=== PATIENT | female | born 1930 | race Caucasian/White ===

== ENCOUNTER → 2016-07-13 | Outpatient (CLI) | payer BC ==
[~2016-07-13] VITALS: Ht 158.8 cm; Wt 47.1 kg
[~2016-07-13] MED LIST: ATV5X PO; CHOL1TAB46 PO; FSM70 PO; MIRT1TAB27 PO
[2016-07-13 15:45] VITALS: BP 159/77; PULSE 80; Ht 158.8 cm; Wt 47.1 kg
== END | disposition home or self-care (01) ==
LOC: C.NEUR 13:24
PROVIDERS: ATTEND Internal Medicine Pulmonary Disease
DX: G47.30 Sleep apnea, unspecified (principal)

== ENCOUNTER → 2017-01-23 | Outpatient (CLI) | payer BC ==
--- NOTE | 2017-01-23 12:48 | DIAGNOSTIC IMAGING REPORT ---
BILATERAL LOWER EXTREMITY VENOUS DOPPLER HISTORY: R60.0 Edema [id number] COMPARISON STUDY: None. FINDINGS: There is normal compressibility, flow, and augmentation within the bilateral lower extremity deep venous systems. IMPRESSION: No DVT within the right or left lower extremity. Electronically signed by: Dany Wilkins M.D. 01/23/2017 12:47 PM Dictated Date/Time: 01/23/2017 12:47 PM
== END | disposition home or self-care (01) ==
LOC: C.ULTRBC 12:09
PROVIDERS: ATTEND Physician Assistant Medical
DX: R60.0 Localized edema (principal)

== ENCOUNTER → 2017-01-28 | Outpatient (CLI) | payer BC ==
[2017-01-28 17:15] LABS: BASO % 0.4 %; BASO ABS # 0.02 K/uL (0-0.2); COMPLETE YES; HEMATOCRIT 43.5 % (37-47); LYMPH % 24.4 %; LYMPH ABS # 1.19 K/uL (1.2-3.4); MEAN CELL VOLUME 88.2 fL (80-100); MEAN CORPUSCULAR HGB CONC 32.9 g/dl (32-36); MEAN PLATELET VOLUME 11.9 fL (7.4-10.4); MONO % 9.9 %; NEUT % 64.3 %; PLATELET COUNT 177 K/uL (130-400); RED BLOOD COUNT 4.93 M/uL (4.2-5.4); WHITE BLOOD COUNT 4.87 K/uL (4.8-10.8)
[2017-01-28 17:24] LABS: BLOOD UREA NITROGEN 22 mg/dl (7-18); BUN/CREATININE RATIO 25.8 (10-20); CALCIUM 8.8 mg/dl (8.5-10.1); CARBON DIOXIDE 25 mmol/L (21-32); CHLORIDE 107 mmol/L (98-107); CREATININE 0.86 mg/dl (0.60-1.20); GLUCOSE 126 mg/dl (70-99); SODIUM 140 mmol/L (136-145)
[2017-01-28 17:35] LABS: THYROID STIMULATING HORMONE 0.624 uIu/ml (0.300-4.500)
== END | disposition home or self-care (01) ==
LOC: C.LABBC 13:18
PROVIDERS: ATTEND Physician Assistant Medical
DX: R60.0 Localized edema (principal); M81.0 Age-related osteoporosis without current pathological fracture

== ENCOUNTER → 2017-08-05 | Outpatient (CLI) | payer BC | END | disposition home or self-care (01) | LOC: C.MAMM 10:47 | PROVIDERS: ATTEND Internal Medicine Geriatric Medicine | DX: M81.0 Age-related osteoporosis without current pathological fracture (principal) ==

== ENCOUNTER 2020-01-04 15:43 | Observation (INO) ==
[2020-01-04] MEDS ORDERED: cefTRIAXone SODIUM 1,000 MG/50 ML BAG IV STA (16:50)
--- NOTE | 2020-01-04 17:33 | XRay Report ---
XR tibia fibula RT 2V HISTORY: 89 years-old Female ulcer, cellulitis, eval for osseos involvement patient presents with pa in and swelling of the right lower leg with reported cellulitis COMPARISON: Right tibia and fibula radiographs 08/21/2018 TECHNIQUE: 2 views of the right tibia and fibula FINDINGS: Demineralized appearance of the bones. Osteoarthritis of the knee and ankle. No acute fracture, dislo cation or osseous erosion to suggest osteomyelitis. Mild diffuse soft tissue prominence. Arterial zunilda cifications. IMPRESSION: Soft tissue swelling without acute fracture or osseous erosion. ACT 112: Negative or not required by law. The above report was generated using voice recognition software. It may contain grammatical, syntax o r spelling errors. Electronically signed by: Isac Baig M.D. 01/04/2020 5:32 PM
[2020-01-04 17:34] LABS: Basophils # (auto) 0.01 K/uL (0-0.2); Basophils % (auto) 0.1 %; Eosinophils # (auto) 0.01 K/uL (0-0.5); Eosinophils % (auto) 0.1 %; Hematocrit (blood only) 42.1 % (37-47); Hemoglobin 13.9 g/dL (12.0-16.0); Immature Granulocytes # (auto) 0.01 K/uL (0.00-0.02); Immature Granulocytes % (auto) 0.1 %; Lymphocytes # (auto) 1.04 K/uL (1.2-3.4); Lymphocytes % (auto) 14.2 %; Mean Corpuscular Hemoglobin 28.5 pg (25-34); Mean Corpuscular Volume 86.4 fL (80-100); Mean Platelet Volume 11.4 fL (7.4-10.4); Monocytes # (auto) 0.66 K/uL (0.11-0.59); Neutrophils # (auto) 5.59 K/uL (1.4-6.5); Neutrophils % (auto) 76.5 %; Platelet Count 179 K/uL (130-400); RDW Coefficient of Variation 15.2 % (11.5-14.5); RDW Standard Deviation 48.9 fL (36.4-46.3); Red Blood Count 4.87 M/uL (4.2-5.4); White Blood Count 7.32 K/uL (4.8-10.8)
[2020-01-04 17:46] LABS: INR 1.1 (0.9-1.1); Partial Thromboplastin Ratio 1.3; Partial Thromboplastin Time 35.6 Seconds (21.0-31.0); Prothrombin Time 11.6 Seconds (9.0-12.0)
[2020-01-04 17:52] LABS: Albumin Level 3.7 gm/dl (3.4-5.0); BUN Creatinine Ratio 25.4 (10-20); Creatinine Clr Calc Pharmacy 31.7 ml/min; Magnesium 2.2 mg/dl (1.8-2.4); Potassium 3.7 mmol/L (3.5-5.1)
[2020-01-04] MEDS ORDERED: VANCOMYCIN CONSULT ACTIVE PRN (17:54)
[2020-01-04] MEDS ORDERED: VANCOMYCIN HCL 1,000 MG in SODIUM CHLORIDE 0.9% 500 ML IV ONE (17:54)
[2020-01-04 17:55] LABS: Bilirubin,Total 0.9 mg/dl (0.2-1); C Reactive Protein 0.3 mg/dl (0-0.29); Globulin 3.7 gm/dl (2.5-4.0); Total Protein 7.4 gm/dl (6.4-8.2)
[2020-01-04] MEDS: SODIUM CHLORIDE 0.9% 1000ML 1,000 ML IV SCH (18:35)
--- NOTE | 2020-01-04 18:52 | Emergency Department Note ---
Impression & Plan Traumatic open wound of right lower leg with delayed healing, Chronic venous stasis, Osteoporosis ED Provider Note NAME: BLANCO BUI AGE: 89 SEX: F ARRIVES VIA: Walk-In INFORMANT: Patient, ED PROVIDER(S): Gary Jeronimo MD CHIEF COMPLAINT: Nonhealing leg ulcer/cellulitis PLAN: Disposition: Admit MEDICAL DECISION MAKING: The patient is a pleasant 89-year-old woman who presents emergency department referred by the wound clinic for concern for nonhealing right lower leg traumatic ulcer after being seen last week and started on doxycycline but seen today concern for lack of response and so referred to emergency department for admission/IV antibiotics. The patient denies any fevers, chills, cough, congestion, nausea, vomiting, diarrhea, urinary symptoms. On arrival patient is no acute distress, afebrile stable vital signs. On exam the patient has a 1 cm ulcer of the mid pretibial region with surrounding warmth and erythema with mild tenderness. There is no crepitus. WBC, H/H and platelets within normal limits. Chemistry without acidosis. Lactate 1.2, within normal limits. CRP marginally elevated at 0.3, ESR within normal limits. Plain film of the right lower leg negative for osseous involvement. Given failed outpatient management of the patient's wound reasonable to meet the patient for further management including IV antibiotics. Patient was provided with initial treatment with ceftriaxone and vancomycin. Patient and her friend at the bedside are agreeable with plan for admission. Case was discussed with Dr. Baeza, [facility] hospitalist, who will evaluate the patient for admission. Triage Nursing notes reviewed and agree them. Prior medical records reviewed Vital Signs: reviewed and remarkable for no significant abnormalities Differential diagnosis: Cellulitis, abscess, MRSA infection, DVT, necrotizing fasciitis, dermatitis, dr ug eruption, allergic reaction, as well as other pathologies. ER treatment provided: See below. Diagnostics interpreted by me: Cardiac Monitoring: An order for continuous cardiac monitoring was placed and demonstrated NSR, 90 bpm, no ectopy. Laboratory studies: See below Imaging studies: XR tibia fibula RT 2V HISTORY: 89 years-old Female ulcer, cellulitis, eval for osseos involvement patient presents with pain and swelling of the right lower leg with reported zhang lulitis COMPARISON: Right tibia and fibula radiographs 08/21/2018 TECHNIQUE: 2 views of the right tibia and fibula FINDINGS: Demineralized appearance of the bones. Osteoarthritis of the knee and ankle. No acute fracture, dislocation or osseous erosion to suggest osteomyelitis. Mild diffuse soft tissue prominence. Arterial calcifications. IMPRESSION: Soft tissue swelling without acute fracture or osseous erosion. Consultation(s): Case was discussed with Dr. Baeza, [facility] hospitalist, who will evaluate the patient for admission. HPI: The patient is a pleasant 89-year-old woman who presents emergency department referred by the wound clinic for concern for nonhealing right lower leg traumatic ulcer after being seen last week and started on doxycycline but seen today concern for lack of response and so referred to emergency department for admission/IV antibiotics. The patient denies any fevers, chills, cough, congestion, nausea, vomiting, diarrhea, urinary symptoms. ROS: See above HPI for pertinent positives & negatives. A total of 10 systems reviewed and were otherwise negative. PAST MEDICAL HISTORY:See Below PAST SURGICAL HISTORY:See Below FAMILY HISTORY:See Below SOCIAL HISTORY:See Below HOME MEDICATIONS:See Below ALLERGIES:See Below VITALS:See Below PHYSICAL EXAMINATION: GENERAL: Awake, alert, well-appearing, in no distress HENT: Normocephalic, atraumatic. Oropharynx with dry mucous membranes and otherwise unremarkable. EYES: Normal conjunctiva. Sclera non-icteric. NECK: Supple. No nuchal rigidity. FROM. No JVD. RESPIRATORY: Clear to auscultation. CARDIAC: Regular rate, normal rhythm. Extremities warm and well perfused. Pulses equal. ABDOMEN: Soft, non-distended. No tenderness to palpation. No rebound or guarding. No masses. RECTAL: Deferred. MUSCULOSKELETAL: Chest examination reveals no tenderness. The back is symmetrical on inspection without obvious abnormality. There is no CVA tenderness to palpation. No joint edema. LOWER EXTREMITIES: Calves are equal size bilaterally and non-tender. Right lower leg with 1 cm ulcer of the mid pretibial region with surrounding warmth and erythema with mild tenderness. There is no crepitus. NEURO: Normal sensorium. No sensory or motor deficits noted. SKIN: Warm and dry. No jaundice noted. Gary Jeronimo MD Past Med/Surg History Medical History Back pain (Acute) Chronic venous stasis (Chronic) Elevated blood pressure reading Osteoporosis (Chronic) T12 compression fracture (Acute) Surgical History History of hysterectomy S/P total abdominal hysterectomy Family History Daughter Breast cancer Denies family history of Ovarian cancer Prostate cancer Myocardial infarction Colorectal cancer Stroke Social History Smoking Status: Former smoker Hx Alcohol Use: Yes Alcohol type: wine Alcohol Intake Frequency: Monthly or Less Hx Substance Use: No Preferred Language: Iranian Communication Ability: Effective Mac Developer Required: No Beliefs That Will Affect Care: None Current Living Situation: Alone Other Information That Helps Us Care for You: No Feels Safe at Home: Yes Safety Concerns: Feels Safe At This Time Allergies Allergies Allergy/AdvReac Type Severity Reaction Status Date / Time codeine Allergy Unknown Unknown Verified 01/04/20 17:32 Sulfa (Sulfonamide Allergy Unknown Unknown Verified 01/04/20 17:32 Antibiotics) Home Meds Previous Rx's Medication Instructions Recorded doxycycline hyclate 100 mg capsule 100 mg PO BID #20 cap 12/22/19 Results & Data (ED) Vital Signs Vital Signs - 24 hr 01/04/20 16:01 01/04/20 17:00 01/04/20 17:30 Temperature 36.8 C Temperature Source Oral Pulse Rate 91 H Pulse Rate from SpO2 Sensor Pulse Rhythm Regular Pulse Strength Normal Respiratory Rate 20 16 17 Respiratory Effort / Characteristics Non-Labored Spontaneous Non-Labored Spontaneous Non-Labored Spontaneous Respiratory Depth Normal Respiratory Pattern Regular Blood Pressure 141/81 H Blood Pressure Mean 101 Blood Pressure Position Sitting Pulse Oximetry 97 98 97 Oxygen Delivery Method Room Air Room Air Room Air Sepsis Recent Fever Within 48 Hours No Sepsis New/Unexplained Change in Mental Status N/A Sepsis Action Taken by Nursing No Action Required 01/04/20 17:35 01/04/20 17:50 01/04/20 18:00 Temperature Temperature Source Pulse Rate 91 H 83 84 Pulse Rate from SpO2 Sensor 91 H 84 85 Pulse Rhythm Pulse Strength Respiratory Rate 17 23 22 Respiratory Effort / Characteristics Non-Labored Spontaneous Respiratory Depth Respiratory Pattern Blood Pressure 146/82 H 151/77 H 153/75 H Blood Pressure Mean 98 104 109 Blood Pressure Position Pulse Oximetry 97 96 97 Oxygen Delivery Method Room Air Sepsis Recent Fever Within 48 Hours Sepsis New/Unexplained Change in Mental Status Sepsis Action Taken by Nursing 01/04/20 18:30 01/04/20 18:31 01/04/20 19:00 Temperature Temperature Source Pulse Rate 90 93 H Pulse Rate from SpO2 Sensor 91 H 93 H Pulse Rhythm Pulse Strength Respiratory Rate 16 19 15 Respiratory Effort / Characteristics Non-Labored Spontaneous Non-Labored Spontaneous Respiratory Depth Respiratory Pattern Blood Pressure 173/85 H 168/104 H Blood Pressure Mean 140 137 Blood Pressure Position Pulse Oximetry 97 97 98 Oxygen Delivery Method Room Air Room Air Sepsis Recent Fever Within 48 Hours Sepsis New/Unexplained Change in Mental Status Sepsis Action Taken by Nursing Laboratory Data Attestation: I reviewed the patient's lab results. Result diagrams: 01/04/20 17:11 01/04/20 17:11 Lab Results 01/04/20 01/04/20 01/04/20 Range/Units 17:11 17:11 17:11 WBC 7.32 (4.8-10.8) K/uL RBC 4.87 (4.2-5.4) M/uL Hgb 13.9 (12.0-16.0) g/dL Hct 42.1 (37-47) % MCV 86.4 (80-100) fL MCH 28.5 (25-34) pg MCHC 33.0 (32-36) g/dL RDW Std Deviation 48.9 H (36.4-46.3) fL RDW Coeff of Buck 15.2 H (11.5-14.5) % Plt Count 179 (130-400) K/uL MPV 11.4 H (7.4-10.4) fL Immature Gran % (Auto) 0.1 % Neut % (Auto) 76.5 % Lymph % (Auto) 14.2 % [place] % (Auto) 9.0 % Eos % (Auto) 0.1 % Baso % (Auto) 0.1 % Neut # (Auto) 5.59 (1.4-6.5) K/uL Lymph # (Auto) 1.04 L (1.2-3.4) K/uL [place] # (Auto) 0.66 H (0.11-0.59) K/uL Eos # (Auto) 0.01 (0-0.5) K/uL Baso # (Auto) 0.01 (0-0.2) K/uL Immature Gran # (Auto) 0.01 (0.00-0.02) K/uL ESR 16 (0-21) mm/hr PT 11.6 (9.0-12.0) Seconds INR 1.1 (0.9-1.1) APTT 35.6 H (21.0-31.0) Seconds PTT Ratio 1.3 Sodium (136-145) mmol/L Potassium (3.5-5.1) mmol/L Chloride (98-107) mmol/L Carbon Dioxide (21-32) mmol/L Anion Gap (3-11) BUN (7-18) mg/dl Creatinine (0.6-1.2) mg/dl Est Cr Clr Drug Dosing ml/min Est GFR ( Amer) Est GFR (Non-Af Amer) BUN/Creatinine Ratio (10-20) Glucose (70-99) mg/dl Lactate (0.4-2.0) mmol/L Calcium (8.5-10.1) mg/dl Magnesium (1.8-2.4) mg/dl Total Bilirubin (0.2-1) mg/dl AST (15-37) U/L ALT (12-78) U/L Alkaline Phosphatase (45-117) U/L C-Reactive Protein (0-0.29) mg/dl Total Protein (6.4-8.2) gm/dl Albumin (3.4-5.0) gm/dl Globulin (2.5-4.0) gm/dl Albumin/Globulin Ratio (0.9-2) 01/04/20 01/04/20 Range/Units 17:11 17:11 WBC (4.8-10.8) K/uL RBC (4.2-5.4) M/uL Hgb (12.0-16.0) g/dL Hct (37-47) % MCV (80-100) fL MCH (25-34) pg MCHC (32-36) g/dL RDW Std Deviation (36.4-46.3) fL RDW Coeff of Buck (11.5-14.5) % Plt Count (130-400) K/uL MPV (7.4-10.4) fL Immature Gran % (Auto) % Neut % (Auto) % Lymph % (Auto) % [place] % (Auto) % Eos % (Auto) % Baso % (Auto) % Neut # (Auto) (1.4-6.5) K/uL Lymph # (Auto) (1.2-3.4) K/uL [place] # (Auto) (0.11-0.59) K/uL Eos # (Auto) (0-0.5) K/uL Baso # (Auto) (0-0.2) K/uL Immature Gran # (Auto) (0.00-0.02) K/uL ESR (0-21) mm/hr PT (9.0-12.0) Seconds INR (0.9-1.1) APTT (21.0-31.0) Seconds PTT Ratio Sodium 142 (136-145) mmol/L Potassium 3.7 (3.5-5.1) mmol/L Chloride 108 H (98-107) mmol/L Carbon Dioxide 27 (21-32) mmol/L Anion Gap 7.0 (3-11) BUN 21 H (7-18) mg/dl Creatinine 0.83 (0.6-1.2) mg/dl Est Cr Clr Drug Dosing 31.7 ml/min Est GFR ( Amer) 73.0 Est GFR (Non-Af Amer) 63.0 BUN/Creatinine Ratio 25.4 H (10-20) Glucose 100 H (70-99) mg/dl Lactate 1.2 (0.4-2.0) mmol/L Calcium 9.0 (8.5-10.1) mg/dl Magnesium 2.2 (1.8-2.4) mg/dl Total Bilirubin 0.9 (0.2-1) mg/dl AST 18 (15-37) U/L ALT 16 (12-78) U/L Alkaline Phosphatase 89 (45-117) U/L C-Reactive Protein 0.30 H (0-0.29) mg/dl Total Protein 7.4 (6.4-8.2) gm/dl Albumin 3.7 (3.4-5.0) gm/dl Globulin 3.7 (2.5-4.0) gm/dl Albumin/Globulin Ratio 1.0 (0.9-2) Administered Medications Sodium Chloride (Nss 1000ml) 1,000 mls @ 125 mls/hr IV .Q8H KIM Stop: 02/03/20 17:59 Last Admin: 01/04/20 18:35 Dose: 125 mls/hr Documented by: [id number] Discontinued Medications Ceftriaxone Sodium (Rocephin) 1,000 mg in 50 mls @ 100 mls/hr IV NOW STA Stop: 01/04/20 17:19 Last Infusion: 01/04/20 18:18 Dose: 0 mls/hr Documented by: [id number] Admin: 01/04/20 17:48 Dose: 100 mls/hr Documented by: [id number] Vancomycin HCl 1,000 mg/ (Sodium Chloride) 520 mls @ 200 mls/hr IV NOW ONE Stop: 01/04/20 20:29 Last Infusion: 01/04/20 22:06 Dose: 0 mls/hr Documented by: [id number] Admin: 01/04/20 18:31 Dose: 200 mls/hr Documented by: [id number] Blood Pressure Blood Pressure Findings: Elevated blood pressure Blood Pressure Disposition: further management by hospitalist Discharge Plan Visit Data *Final* Discharge Date/Time: 01/04/20 19:41 Chief Complaint: Infection, Wound Stated Complaint: WOUND, INFECTION ED Provider: Gary Jeronimo Discharge Problem: Traumatic open wound of right lower leg with delayed healing, Chronic venous stasis, Osteoporosis Patient Disposition: Admitted As Inpatient Discharge Instructions Interventions: ED Discharge Assessment Last Done: 01/04/20 19:41
--- NOTE | 2020-01-04 18:58 | History & Physical Report ---
Date of Service January 04, 2020 Assessment & Plan (1) Cellulitis: Already appears improved from prior descriptions Continue vanc + ceftriaxone Follow up blood cultures (2) Traumatic open wound of right lower leg with delayed healing: Wound care consult Already debrided today at wound care clinic (3) Tachycardia: Suspect anxiety +/- dehydration related Continue IV fluids overnight Irregularity is her PVCs and PACs which we will monitor overnight for any other rhythm abnormalities on telemetry (4) Elevated blood pressure reading: On no medication for this as outpatient. Monitor for now, no need to start anything acutely. (5) Osteoporosis: On no medication for this. Ca WNL (6) Chronic venous stasis: Consider repeat scans as per wound care note although I do not see an acute reason to do this as inaptient. (7) DVT prophylaxis: No SCDs due to skin integrity Hold off chemical anticoagulation at present given no history of VTE, no cancer and likely short duration of stay. History of Present Illness Chief Complaint: Ulcer, cellulitis, tachycardia Primary Care Provider: Jair Cristobal DO Elisa Gamboa is an 89 year old female who presents to the ER on the advice of wound care clinic due to ongoing traumatic wound on right lower bishop. 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 She was seen by her PCP on December 21 and started on doxycycline due to concern for surrounding cellulitis and set up with a wound care appointment today. At her wound care appointment the aound was debrideded however due to continued cellulitis which did not appear to respond to doxycycline and tachycardia with irregular rhythm in the office she was advised to go to the ER for further workup. Her irregular heart rate was also found during her PCP appointment in December and EKG at that time showed sinus tachycardia with occasional PACs and one PVC. In the ER she was started on vancomycin and ceftriaxone. WBC/ESR WNL and CRP minimally elevated. She was referred to the medicine team for possible admission due to failure of outpatient antibiotics. Allergies Allergy/AdvReac Type Severity Reaction Status Date / Time codeine Allergy Unknown Unknown Verified 01/04/20 17:32 Sulfa (Sulfonamide Allergy Unknown Unknown Verified 01/04/20 17:32 Antibiotics) Home Medications Home Medications Medication Instructions Recorded Confirmed Type doxycycline hyclate 100 mg capsule 100 mg PO BID #20 cap 12/22/19 01/04/20 Rx Past Med/Surg History Medical History Back pain (Acute) Chronic venous stasis (Chronic) Elevated blood pressure reading Osteoporosis (Chronic) T12 compression fracture (Acute) Surgical History History of hysterectomy S/P total abdominal hysterectomy Family History Daughter Breast cancer Denies family history of Ovarian cancer Prostate cancer Myocardial infarction Colorectal cancer Stroke Social History Smoking Status: Former smoker Hx Alcohol Use: Yes Alcohol type: wine Alcohol Intake Frequency: Monthly or Less Hx Substance Use: No Preferred Language: Telugu Communication Ability: Effective Home Economist Consumer Service Required: No Beliefs That Will Affect Care: None Current Living Situation: Alone Other Information That Helps Us Care for You: No Feels Safe at Home: Yes Safety Concerns: Feels Safe At This Time Review of Systems Review of Systems: All systems reviewed & are unremarkable except as noted in HPI & below Physical Exam 2 Constitutional: well developed and + frail appearing; no acute distress and not ill appearing Eyes: + anicteric sclerae; normal pupil size ENMT: external ear and nose normal, oropharynx normal Neck: trachea midline, no thyromegaly Respiratory: normal respiratory effort, lungs clear to auscultation Cardiovascular: RRR, no murmur, no edema Gastrointestinal (Abdomen): normal bowel sounds, soft, nontender, no hepatosplenomegaly Musculoskeletal: no cyanosis or clubbing, extremities motor strength 5/5 Skin: no rashes, warm and dry Neurologic: moves all extremities and awake; not confused Psychiatric: Orientation: alert, oriented to person and oriented to place; + not oriented to time (wrong date, month, year) Eye Contact: good eye contact Lymphatic: no cervical or axillary lymphadenopathy Results & Data Results & Data ([facility]) Vital Signs (Past 12 Hours) Vital Signs Temp Pulse Resp BP Pulse Ox 01/04/20 18:31 90 19 173/85 H 97 01/04/20 18:00 84 22 153/75 H 97 01/04/20 17:50 83 23 151/77 H 96 01/04/20 17:35 91 H 17 146/82 H 97 01/04/20 17:00 16 98 01/04/20 16:01 36.8 C 91 H 20 141/81 H 97 Diagnostic Findings XR tibia fibula RT 2V IMPRESSION: Soft tissue swelling without acute fracture or osseous erosion. Code Status & VTE Plan Code Status Full as per patient wishes - she did not wish me to discuss this with her daughter and appears to have capacity to make this decision VTE Prophylaxis Plan VTE Prophylaxis will be ordered: Yes PG Care Time/CCT Total # of Minutes Spent Total Time Spent with Patient: Total time spent is greater than 50% in coordination of care (as documented) at patient's floor/unit and/or counseling patient: Coding Level of Care Code 31557 OBS Care - Level 2 Diagnoses Cellulitis L03.90 Traumatic open wound of right lower leg with delayed healing S81.801D Tachycardia R00.0 Elevated blood pressure reading R03.0 Osteoporosis M81.0 Chronic venous stasis I87.8 DVT prophylaxis Z29.9
[2020-01-04] MEDS ORDERED: diphenhydrAMINE Capsule 25 MG CAP PO PRN (22:18)
[2020-01-04] MEDS ORDERED: ONDANSETRON INJ 2 MG/ML 2 ML VIAL IV PRN (22:43)
[2020-01-04] MEDS ORDERED: ALUMINUM/MAGNESIUM SUSP 30 ML UDC PO PRN (22:43)
[2020-01-04] MEDS ORDERED: MAGNESIUM HYDROXIDE SUSP 30 ML UDC PO PRN (22:43)
[2020-01-04] MEDS ORDERED: POLYETHYLENE (MIRALAX) 17 GM PACK PO PRN (22:43)
[2020-01-05] MEDS: SODIUM CHLORIDE 0.9% 1000ML 1,000 ML IV SCH ×3 (01:50→17:06)
[2020-01-05 07:03] LABS: Basophils # (auto) 0.01 K/uL (0-0.2); Basophils % (auto) 0.2 %; Eosinophils # (auto) 0.13 K/uL (0-0.5); Eosinophils % (auto) 2.6 %; Hematocrit (blood only) 37.6 % (37-47); Hemoglobin 12.4 g/dL (12.0-16.0); Immature Granulocytes # (auto) 0.01 K/uL (0.00-0.02); Immature Granulocytes % (auto) 0.2 %; Lymphocytes # (auto) 1.22 K/uL (1.2-3.4); Lymphocytes % (auto) 24.6 %; Mean Corpuscular Hemoglobin 28.5 pg (25-34); Mean Corpuscular Volume 86.4 fL (80-100); Mean Platelet Volume 11.6 fL (7.4-10.4); Monocytes # (auto) 0.44 K/uL (0.11-0.59); Monocytes % (auto) 8.9 %; Neutrophils # (auto) 3.14 K/uL (1.4-6.5); Neutrophils % (auto) 63.5 %; Platelet Count 152 K/uL (130-400); RDW Standard Deviation 48.1 fL (36.4-46.3); Red Blood Count 4.35 M/uL (4.2-5.4); White Blood Count 4.95 K/uL (4.8-10.8)
[2020-01-05 07:43] LABS: BUN Creatinine Ratio 18.5 (10-20); Calcium 7.7 mg/dl (8.5-10.1); Creatinine Clr Calc Pharmacy 41.6 ml/min; Est GFR (African American) 95.9; Est GFR (Non-African American) 82.8; Potassium 3.5 mmol/L (3.5-5.1)
--- NOTE | 2020-01-05 10:41 | Pharmacy Report ---
Pharmacy Abx Initial Consult - Date of Service January 05, 2020 - Pharmacy Dosing Scope Date of Consult: 01/04/2020 Consultation requested by: Dr. Baeza Pharmacy is consulted to initiate Vancomycin IV dosing therapy, order appropriate labs and adjust drug dose/frequency. - Subjective The patient is a 89 year old F admitted on 01/04/20 19:09. - Objective Height: 4 ft 9 in Weight: 39.7 kg Vital Signs (Past 12hrs): Vital Signs Temp Pulse Pulse Resp BP Pulse Ox 01/05/20 08:00 68 01/05/20 07:02 36.9 C 80 18 149/72 H 94 01/05/20 04:00 36.8 C 79 20 164/70 H 96 01/04/20 23:27 36.8 C 79 20 161/77 H 97 01/04/20 23:19 70 Lab Results (24hrs): Laboratory Tests (24 Hours) 01/05/20 01/05/20 01/04/20 06:46 06:46 17:11 WBC 4.95 Neut # (Auto) 3.14 ESR Creatinine 0.57 L 0.83 Est Cr Clr Drug Dosing 41.6 31.7 C-Reactive Protein 0.30 H 01/04/20 01/04/20 17:11 17:11 WBC 7.32 Neut # (Auto) 5.59 ESR 16 Creatinine Est Cr Clr Drug Dosing C-Reactive Protein Micro Results: 01/04/20 17:45 Aerobic Blood Culture - Pending Blood Anaerobic Blood Culture - Pending 01/04/20 17:11 Aerobic Blood Culture - Pending Blood Anaerobic Blood Culture - Pending - Risk Factors for Resistance * Antimicrobial use within the last 90 days: * Doxycycline 100 mg PO BID - Assessment & Plan Assessment 89 year old F admitted secondary to nonhealing RLE traumatic ulcer * Patient has a h/o chronic venous stasis and has been following with wound clinic for open wound on RLE. Sent from wound clinic for IV abx following failure of outpatient treatment with PO doxycycline. * According to ED note: "1 cm ulcer of the mid pretibial region with surround warmth and erythema with mild tenderness". * Upon admission: she is afebrile, no leukocytosis, renal fxn appears to be at baseline, ESR not elevated, CRP mildly elevated, Lactic acid 1.2. * Blood and RLE cultures are pending. * RLE XR shows "soft tissue swelling" without evidence of osteomyelitis. Plan Vancomycin + Ceftriaxone for treatment of RLE cellulitis Vancomycin IV * Estimated PK Parameters: t1/2 ~ 18 hrs * Loading dose: 1000 mg (25 mg/kg) * Maintenance dose: 750 mg IV (19 mg/kg) every 18 hours * Goal trough level: ~ 15 mcg/mL * Trough level ordered for , Jan.06, at 1730 prior to the 4th maintenance dose to reflect steady state levels Ceftriaxone (Pharmacy not consulted) * 1 g IV every 24 hours - appropriate per indication and renal function Pharmacy will continue to follow and will adjust dose/frequency as necessary. Thank you.
[2020-01-05] MEDS: VANCOMYCIN HCL 750 MG in SODIUM CHLORIDE 0.9% 250 ML IV SCH (12:26)
[2020-01-05] MEDS ORDERED: VANCOMYCIN HCL 750 MG in SODIUM CHLORIDE 0.9% 250 ML IV SCH (16:00)
[2020-01-05] MEDS ORDERED: cefTRIAXone SODIUM 1,000 MG in DEXTROSE 5% 50 ML IV SCH (16:00)
[2020-01-05] MEDS: ACETAMINOPHEN 325 MG TAB PO PRN (17:49)
[2020-01-05] MEDS ORDERED: MELATONIN 3 MG TAB PO PRN (20:23)
[2020-01-05] MEDS: diphenhydrAMINE Capsule 25 MG CAP PO PRN (20:36)
--- NOTE | 2020-01-05 22:51 | Hospitalist Progress Note ---
Date of Service January 05, 2020 Assessment & Plan (1) Cellulitis: Already appears improved from prior descriptions Continue vanc + ceftriaxone Follow up blood cultures: have no been finalized as 01/04 appreciate wound care input. (2) Traumatic open wound of right lower leg with delayed healing: Wound care consult Already debrided today at wound care clinic (3) Tachycardia: Suspect anxiety +/- dehydration related Continue IV fluids overnight Irregularity is her PVCs and PACs which we will monitor overnight for any other rhythm abnormalities on telemetry (4) Elevated blood pressure reading: On no medication for this as outpatient. Monitor for now, no need to start anything acutely. May consider starting low dose amlodipine (2.5 mg PO HS) at discharge (5) Osteoporosis: On no medication for this. Ca WNL (6) Chronic venous stasis: Consider repeat scans as per wound care note although I do not see an acute reason to do this as inpatient. (7) DVT prophylaxis: starting heparin in AM, if not discharged. Admission and Anticipated Discharge Date Admission Date: January 04, 2020 Subjective 89 yo female reports feeling better. She has no new complaints at this time. Review of Systems Review of Systems: All systems reviewed & are unremarkable except as noted in HPI & below Physical Exam Physical Exam: Constitutional: well developed,no acute distress and not ill appearing Eyes: + anicteric sclerae; normal pupil size ENMT: external ear and nose normal, oropharynx normal Neck: trachea midline, no thyromegaly Respiratory: normal respiratory effort, lungs clear to auscultation Cardiovascular: RRR, no murmur, no edema Gastrointestinal (Abdomen): normal bowel sounds, soft, nontender, no hepatosplenomegaly Musculoskeletal: no cyanosis or clubbing, extremities motor strength 5/5 Skin: no rashes, warm and dry Neurologic: moves all extremities and awake; not confused Psychiatric: Orientation: alert, oriented to person and oriented to place; + not oriented to time (wrong date, month, year) Eye Contact: good eye contact Lymphatic: no cervical or axillary lymphadenopathy Results & Data Results & Data ([facility]) Vital Signs (Past 12 Hours) Vital Signs Temp Pulse Pulse Resp BP Pulse Ox 01/05/20 19:28 36.8 C 82 16 150/79 H 97 01/05/20 16:00 75 01/05/20 15:07 36.8 C 79 18 164/63 H 96 PG Care Time/CCT Total # of Minutes Spent Total Time Spent with Patient: Total time spent is greater than 50% in coordination of care (as documented) at patient's floor/unit and/or counseling patient: Coding Level of Care Code 14566 Subseq Hosp Care Lvl 3 Diagnoses Cellulitis L03.90 Traumatic open wound of right lower leg with delayed healing S81.801D Tachycardia R00.0 Elevated blood pressure reading R03.0 Osteoporosis M81.0 Chronic venous stasis I87.8 DVT prophylaxis Z29.9 Time Spent (min) 35
[2020-01-06] MEDS ORDERED: OLANZapine 10 MG/2.1 ML SDV IM STA (00:41)
[2020-01-06 03:18] LABS: Creatinine Clr Calc Pharmacy 23.7 ml/min; Est GFR (African American) 58.3; Est GFR (Non-African American) 50.3
[2020-01-06] MEDS: VANCOMYCIN HCL 750 MG in SODIUM CHLORIDE 0.9% 250 ML IV SCH (05:44)
[2020-01-06] MEDS: HEPARIN SOD 5,000 UNIT/0.5 ML VIAL SQ SCH ×2 (10:06→20:27)
[2020-01-06] MEDS: CEFEPIME 1,000 MG in SYRINGE 0 ML IV SCH ×2 (10:06→21:49)
[2020-01-06] MEDS ORDERED: OLANZapine 10 MG/2.1 ML SDV IM PRN (11:13)
--- NOTE | 2020-01-06 13:52 | Hospitalist Progress Note ---
Date of Service January 06, 2020 Assessment & Plan (1) Cellulitis: Right lower extremity from venous stasis ulceration. Pseudomonas isolated. Antibiotic switched to cefepime, day 1. Follow up blood cultures negative to date. Appreciate wound care input. (2) Traumatic open wound of right lower leg with delayed healing: Wound care consult. Debrided at wound care clinic 01/04. (3) Tachycardia: Resolved with IV fluids. Telemetry. (4) Elevated blood pressure reading: On no medication for this as outpatient. Monitor for now, no need to start anything acutely. May consider starting amlodipine (5) Osteoporosis: Currently on no medication for this. Ca WNL (6) Chronic venous stasis: Supportive care. (7) DVT prophylaxis: Heparin subcu (8) : Supportive care. Zyprexa IM as needed Present on Admission?: No Admission and Anticipated Discharge Date Admission Date: January 06, 2020 Subjective [place] psychosis last evening necessitated Zyprexa IM. Pseudomonas isolated from the right lower extremity wound. Antibiotics switched to cefepime. White blood cell count trending down. Creatinine 0.5 Review of Systems Review of Systems: Constitutional-no fever or chills ENT-no blurred vision, no double vision, no epistaxis, no sore throat Respiratory-no cough, no wheezing, no shortness of breath Cardiac-no palpitations, no chest pain, no syncope GI-no nausea, vomiting, diarrhea, melena, hematochezia -no urinary retention, no urinary incontinence, no dysuria, no hematuria Musculoskeletal-no joint pain, no muscle tenderness Skin-no bruising, no rashes, no pruritus Neuro-no isolated weakness, no paresthesia, no weakness Psych-no depression, no anxiety Physical Exam Physical Exam: General-alert and oriented x3, no fevers, no chills HEENT-head atraumatic and normocephalic, TMs intact bilaterally, pupils equal and reactive to light, extraocular muscles intact Neck-no lymphadenopathy or thyromegaly, trachea midline Chest-clear to auscultation percussion. No rales wheezing or rhonchi Cardiac-regular rate and rhythm, normal S1 and S2, no murmurs Abdomen-normal bowel sounds, nontender, no hepatosplenomegaly Extremities-chronic bilateral lower extremity venous stasis changes. Ulceration right lower extremity is bandaged Neuro-cranial nerves II through XII intact, motor and sensory function within normal limits, strength symmetrical 5/5, no focal deficits Psych-normal affect, normal mood Results & Data Results & Data ([facility]) Vital Signs (Past 12 Hours) Vital Signs Temp Pulse Pulse Resp BP BP Pulse Ox 01/06/20 07:33 60 01/06/20 07:20 36.4 C L 66 18 162/77 H 95 01/06/20 04:00 36.6 C 70 18 146/71 H 98 Laboratory Results 01/05/20 06:46 01/06/20 02:38 PG Care Time/CCT Total # of Minutes Spent Total Time Spent with Patient: Total time spent is greater than 50% in coordination of care (as documented) at patient's floor/unit and/or counseling patient: Coding Level of Care Code 10011 Subseq Hosp Care Lvl 3 Diagnoses Cellulitis L03.90 Traumatic open wound of right lower leg with delayed healing S81.801D Tachycardia R00.0 Elevated blood pressure reading R03.0 Osteoporosis M81.0 Chronic venous stasis I87.8 DVT prophylaxis Z29.9 F05
[2020-01-07 07:30] LABS: Hematocrit (blood only) 39.6 % (37-47); Hemoglobin 13.3 g/dL (12.0-16.0); Mean Corpuscular Hemoglobin 28.9 pg (25-34); Mean Corpuscular Hgb Conc 33.6 g/dL (32-36); Mean Corpuscular Volume 86.1 fL (80-100); Platelet Count 171 K/uL (130-400); RDW Coefficient of Variation 15.2 % (11.5-14.5); RDW Standard Deviation 47.9 fL (36.4-46.3); White Blood Count 7.02 K/uL (4.8-10.8)
[2020-01-07 07:54] LABS: BUN Creatinine Ratio 15.1 (10-20); Calcium 8.4 mg/dl (8.5-10.1); Creatinine Clr Calc Pharmacy 27.9 ml/min; Est GFR (African American) 70.9; Est GFR (Non-African American) 61.2; Potassium 3.9 mmol/L (3.5-5.1)
[2020-01-07] MEDS: HEPARIN SOD 5,000 UNIT/0.5 ML VIAL SQ SCH ×2 (08:31→20:37)
[2020-01-07] MEDS: CEFEPIME 1,000 MG in SYRINGE 0 ML IV SCH ×2 (11:10→22:08)
--- NOTE | 2020-01-07 12:17 | Hospitalist Progress Note ---
Date of Service January 07, 2020 Assessment & Plan (1) Cellulitis: Right lower extremity from venous stasis ulceration. Pseudomonas isolated. Antibiotic switched to cefepime, day 2. Follow up blood cultures negative to date. Appreciate wound care input. (2) Traumatic open wound of right lower leg with delayed healing: Wound care consult. Debrided at wound care clinic 01/04. (3) Tachycardia: Resolved with IV fluids. Telemetry. (4) Elevated blood pressure reading: On no medication for this as outpatient. Monitor for now (5) Osteoporosis: Currently on no medication for this. Ca WNL (6) Chronic venous stasis: Supportive care. (7) DVT prophylaxis: Heparin subcu (8) ing: Supportive care. Zyprexa IM as needed Admission and Anticipated Discharge Date Admission Date: January 06, 2020 Subjective Alert and pleasantly confused with underlying dementia. She has an open stasis ulcer wound on the anterior aspect of the right lower leg with associated venous stasis changes. She is now on cefepime, day 2, for Pseudomonas that was isolated in the culture. Blood culture from January 03 remains negative to date. She is receiving Zyprexa IM as needed at nighttime for psychosis. Case management is working on placement. Review of Systems Review of Systems: Constitutional-no fever or chills ENT-no blurred vision, no double vision, no epistaxis, no sore throat Respiratory-no cough, no wheezing, no shortness of breath Cardiac-no palpitations, no chest pain, no syncope GI-no nausea, vomiting, diarrhea, melena, hematochezia -no urinary retention, no urinary incontinence, no dysuria, no hematuria Musculoskeletal-no joint pain, no muscle tenderness Skin-no bruising, no rashes, no pruritus. Open ulceration on the anterior lateral aspect of the right bishop with associated stasis dermatitis Neuro-no isolated weakness, no paresthesia, no weakness Psych-no depression, no anxiety Physical Exam Physical Exam: General-alert , pleasantly confused, no fevers, no chills HEENT-head atraumatic and normocephalic, TMs intact bilaterally, pupils equal and reactive to light, extraocular muscles intact Neck-no lymphadenopathy or thyromegaly, trachea midline Chest-clear to auscultation percussion. No rales wheezing or rhonchi Cardiac-regular rate and rhythm, normal S1 and S2, no murmurs Abdomen-normal bowel sounds, nontender, no hepatosplenomegaly Extremities-chronic bilateral lower extremity venous stasis changes. Ulceration right lower extremity is bandaged Neuro-generalized weakness due to advanced age. Underlying dementia. Psych-normal affect, normal mood Results & Data Results & Data ([facility]) Vital Signs (Past 12 Hours) Vital Signs Temp Pulse Pulse Resp BP Pulse Ox 01/07/20 11:03 117/71 01/07/20 10:54 36.9 C 77 18 95 01/07/20 07:14 36.7 C 62 20 149/76 H 98 01/07/20 07:12 54 L Laboratory Results 01/07/20 06:50 01/07/20 06:50 PG Care Time/CCT Total # of Minutes Spent Total Time Spent with Patient: Total time spent is greater than 50% in coordination of care (as documented) at patient's floor/unit and/or counseling patient: Coding Level of Care Code 72431 Subseq Hosp Care Lvl 3 Diagnoses Cellulitis L03.90 Traumatic open wound of right lower leg with delayed healing S81.801D Tachycardia R00.0 Elevated blood pressure reading R03.0 Osteoporosis M81.0 Chronic venous stasis I87.8 DVT prophylaxis Z29.9 F05
[2020-01-07] MEDS ORDERED: VANCOMYCIN TROUGH ONE (17:30)
[2020-01-08] MEDS: ACETAMINOPHEN 325 MG TAB PO PRN (04:56)
[2020-01-08 06:37] LABS: BUN Creatinine Ratio 25.3 (10-20); Calcium 8.8 mg/dl (8.5-10.1); Creatinine Clr Calc Pharmacy 24.2 ml/min; Est GFR (African American) 59.7; Est GFR (Non-African American) 51.5; Potassium 3.7 mmol/L (3.5-5.1)
[2020-01-08] MEDS: HEPARIN SOD 5,000 UNIT/0.5 ML VIAL SQ SCH ×2 (10:19→21:25)
[2020-01-08] MEDS: CEFEPIME 1,000 MG in SYRINGE 0 ML IV SCH ×2 (10:38→21:25)
--- NOTE | 2020-01-08 19:24 | Hospitalist Progress Note ---
Date of Service January 08, 2020 Assessment & Plan (1) Cellulitis: Right lower extremity from venous stasis ulceration. Pseudomonas isolated. Antibiotic switched to cefepime on 01/04. Follow up blood cultures negative to date. Appreciate wound care input. (2) Traumatic open wound of right lower leg with delayed healing: Wound care consult. Debrided at wound care clinic 01/04. (3) Tachycardia: Resolved with IV fluids. Telemetry. (4) Elevated blood pressure reading: On no medication for this as outpatient. Monitor for now (5) Osteoporosis: Currently on no medication for this. Ca WNL (6) Chronic venous stasis: Supportive care. (7) DVT prophylaxis: Heparin subcu (8) : Supportive care. Zyprexa IM as needed Admission and Anticipated Discharge Date Admission Date: January 06, 2020 Subjective Pt states she still has some pain to the R LE, but it is "to be expected" and improving, more of a soreness. Tolerating PO without issue. Pt denies fever, SOB, chest pain, abd pain, n/v/c/d, LE swelling. Review of Systems Review of Systems: Pertinent positives and negatives reviewed in HPI--all others negative Physical Exam Constitutional: WD/WN, vitals as above Eyes: normal visual pino by confrontation and + anicteric sclerae Neck: normal visual inspection and trachea midline Respiratory: normal respiratory effort, lungs clear to auscultation Cardiovascular: Rate/Rhythm: regular rate and regular rhythm Gastrointestinal (Abdomen): Inspection/Auscultation: abdomen not distended Percussion/Palpation: abdomen soft; abdomen nontender Musculoskeletal: Head/Neck/Chest: normocephalic and head atraumatic negative for edema, peripheral pulses intact Skin: no rashes, warm and dry bandage is clean and dry Neurologic: awake; not confused Speech / Cognition: normal speech Psychiatric: A+Ox3, euthymic affect Results & Data Results & Data ([facility]) Vital Signs (Past 12 Hours) Vital Signs Temp Pulse Pulse Resp BP Pulse Ox 01/08/20 16:00 71 01/08/20 15:43 36.9 C 76 17 121/69 94 01/08/20 11:27 36.9 C 87 16 118/79 97 01/08/20 10:20 64 PG Care Time/CCT Total # of Minutes Spent Total Time Spent with Patient: Total time spent is greater than 50% in coordina tion of care (as documented) at patient's floor/unit and/or counseling patient: Coding Level of Care Code 27384 Subseq Hosp Care Lvl 3 Diagnoses Cellulitis L03.90 Traumatic open wound of right lower leg with delayed healing S81.801D Tachycardia R00.0 Elevated blood pressure reading R03.0 Osteoporosis M81.0 Chronic venous stasis I87.8 DVT prophylaxis Z29.9 F05
[2020-01-09] MEDS: ACETAMINOPHEN 325 MG TAB PO PRN (04:17)
[2020-01-09] MEDS: HEPARIN SOD 5,000 UNIT/0.5 ML VIAL SQ SCH ×2 (07:52→20:40)
[2020-01-09] MEDS ORDERED: CEFDINIR 300 MG CAP PO SCH (09:15)
[2020-01-09 09:33] LABS: Hematocrit (blood only) 38.3 % (37-47); Hemoglobin 12.6 g/dL (12.0-16.0); Mean Corpuscular Hgb Conc 32.9 g/dL (32-36); Mean Platelet Volume 11.7 fL (7.4-10.4); Platelet Count 180 K/uL (130-400); RDW Coefficient of Variation 15.4 % (11.5-14.5); Red Blood Count 4.35 M/uL (4.2-5.4); White Blood Count 5.51 K/uL (4.8-10.8)
[2020-01-09 09:50] LABS: BUN Creatinine Ratio 23.1 (10-20); Calcium 8.4 mg/dl (8.5-10.1); Creatinine Clr Calc Pharmacy 29.6 ml/min; Est GFR (African American) 76.3; Est GFR (Non-African American) 65.8; Potassium 3.4 mmol/L (3.5-5.1)
[2020-01-09] MEDS ORDERED: CIPROFLOXACIN 500 MG TAB PO SCH (10:00)
--- NOTE | 2020-01-09 14:50 | Hospitalist Progress Note ---
Date of Service January 09, 2020 Assessment & Plan (1) Cellulitis: Right lower extremity from venous stasis ulceration. Pseudomonas isolated. Antibiotic switched to cefepime on 01/04 -> cipro PO on 01/08 Follow up blood cultures negative to date. Appreciate wound care input. (2) Traumatic open wound of right lower leg with delayed healing: Wound care consult. Debrided at wound care clinic 01/04. (3) Tachycardia: Resolved with IV fluids. Telemetry. (4) Elevated blood pressure reading: On no medication for this as outpatient. Current BPs are WNL (5) Osteoporosis: Currently on no medication for this. Ca WNL (6) Chronic venous stasis: Supportive care. (7) DVT prophylaxis: Heparin subcu (8) owning: Supportive care. Zyprexa IM as needed Family is currently working with CM on home with 24/12 care vs rehab due to pt's instability Rx on file for hospital bed due to frequent repositioning if pt to d/c to home D/W daughter Joseline on 01/08 Admission and Anticipated Discharge Date Admission Date: January 06, 2020 Subjective Pt states she has mild soreness to her R LE, but denies other pain. Tolerating PO without issue. Pt denies fever, SOB, chest pain, abd pain, n/v/c/d, LE swelling. 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 She states that her cellulitis is much better now. Spoke with daughter via phone. She does have concerns about pt going to a rehab facility given COVID and also pt's owning issues that are noted during her hospitalization. They are looking into 24hr care options for home. She would also like to discuss a home hospital bed as pt generally has a lot of back pain, which she does not seem to be having here. Review of Systems Review of Systems: Pertinent positives and negatives reviewed in HPI--all others negative Physical Exam Constitutional: WD/WN, vitals as above Eyes: normal visual pino by confrontation and + anicteric sclerae Neck: normal visual inspection and trachea midline Respiratory: normal respiratory effort, lungs clear to auscultation Cardiovascular: Rate/Rhythm: regular rate and regular rhythm Extremities: n o edema Gastrointestinal (Abdomen): Inspection/Auscultation: abdomen not distended Percussion/Palpation: abdomen soft; abdomen nontender Musculoskeletal: Head/Neck/Chest: normocephalic and head atraumatic Skin: no erythema (bandages clean and dry) Neurologic: awake; not confused Speech / Cognition: normal speech Psychiatric: A+Ox3, euthymic affect Results & Data Results & Data ([facility]) Vital Signs (Past 12 Hours) Vital Signs Temp Pulse Pulse Resp BP Pulse Ox 01/09/20 11:24 36.7 C 85 18 106/63 97 01/09/20 09:00 78 01/09/20 07:33 36.7 C 80 16 119/62 96 01/09/20 03:00 36.7 C 87 18 119/70 92 PG Care Time/CCT Total # of Minutes Spent Total Time Spent with Patient: Total time spent is greater than 50% in coordination of care (as documented) at patient's floor/unit and/or counseling patient: Coding Level of Care Code 98523 Subseq Hosp Care Lvl 3 Diagnoses Cellulitis L03.90 Traumatic open wound of right lower leg with delayed healing S81.801D Tachycardia R00.0 Elevated blood pressure reading R03.0 Osteoporosis M81.0 Chronic venous stasis I87.8 DVT prophylaxis Z29.9 F05
[2020-01-09] MEDS: diphenhydrAMINE Capsule 25 MG CAP PO PRN (22:01)
[2020-01-10] MEDS: CIPROFLOXACIN 500 MG TAB PO SCH ×2 (04:19→20:56)
[2020-01-10] MEDS: HEPARIN SOD 5,000 UNIT/0.5 ML VIAL SQ SCH ×2 (07:57→20:55)
--- NOTE | 2020-01-10 16:06 | Hospitalist Progress Note ---
Date of Service January 10, 2020 Assessment & Plan (1) Cellulitis: Right lower extremity from venous stasis ulceration. Pseudomonas isolated. Antibiotic switched to cefepime on 01/04 -> cipro PO on 01/08 Follow up blood cultures negative to date. Appreciate wound care input. (2) Traumatic open wound of right lower leg with delayed healing: Wound care consult. Debrided at wound care clinic 01/04. (3) Tachycardia: Resolved with IV fluids. Telemetry. (4) Elevated blood pressure reading: On no medication for this as outpatient. Current BPs are WNL (5) Osteoporosis: Currently on no medication for this. Ca WNL (6) Chronic venous stasis: Supportive care. (7) DVT prophylaxis: Heparin subcu (8) : Supportive care. Zyprexa IM as needed Family is currently working with CM on home with 24/12 care vs rehab due to pt's ambulatory instability Rx on file for hospital bed due to frequent repositioning if pt to d/c to home D/W daughter Joseline on 01/08 Admission and Anticipated Discharge Date Admission Date: January 06, 2020 Subjective Pt continues to have mild soreness to her R LE, but denies other pain. Tolerating PO without issue. Pt denies fever, SOB, chest pain, abd pain, n/v/c/d, LE swelling. Review of Systems Review of Systems: Pertinent positives and negatives reviewed in HPI--all others negative Physical Exam Constitutional: WD/WN, vitals as above Eyes: normal visual pino by confrontation and + anicteric sclerae Neck: normal visual inspection and trachea midline Respiratory: normal respiratory effort, lungs clear to auscultation Cardiovascular: Rate/Rhythm: regular rate and regular rhythm Extremities: no edema Gastrointestinal (Abdomen): Inspection/Auscultation: abdomen not distended Percussion/Palpation: abdomen soft; abdomen nontender Musculoskeletal: Head/Neck/Chest: normocephalic and head atraumatic Skin: no rashes, warm and dry no erythema (bandages clean and dry) Neurologic: awake; not confused Speech / Cognition: normal speech Psychiatric: A+Ox3, euthymic affect Results & Data Results & Data ([facility]) Vital Signs (Past 12 Hours) Vital Signs Temp Pulse Resp BP BP Pulse Ox 01/10/20 15:27 36.7 C 85 18 115/67 97 01/10/20 07:57 36.7 C 95 H 18 124/76 97 PG Care Time/CCT Total # of Minutes Spent Total Time Spent with Patient: Total time spent is greater than 50% in coordination of care (as documented) at patient's floor/unit and/or counseling patient: Coding Level of Care Code 46113 Subseq Hosp Care Lvl 2 Diagnoses Cellulitis L03.90 Traumatic open wound of right lower leg with delayed healing S81.801D Tachycardia R00.0 Elevated blood pressure reading R03.0 Osteoporosis M81.0 Chronic venous stasis I87.8 DVT prophylaxis Z29.9 F05
[2020-01-10] MEDS: diphenhydrAMINE Capsule 25 MG CAP PO PRN (20:59)
[2020-01-11 06:44] LABS: Creatinine Clr Calc Pharmacy 34.3 ml/min; Est GFR (African American) 90.1; Est GFR (Non-African American) 77.7
[2020-01-11] MEDS: HEPARIN SOD 5,000 UNIT/0.5 ML VIAL SQ SCH ×2 (08:37→20:12)
[2020-01-11] MEDS: CIPROFLOXACIN 500 MG TAB PO SCH ×2 (12:39→20:11)
--- NOTE | 2020-01-11 14:00 | XRay Report ---
XR chest 1V portable CLINICAL HISTORY: L posterior rib pain, recent fall trauma. Pain. COMPARISON STUDY: No previous studies for comparison. FINDINGS: The bones soft tissues and hemidiaphragms are normal. The cardiomediastinal silhouette is n ormal. The lungs are clear. The pulmonary vasculature is normal. Trace pleural fluid left base. No evidence for pneumothorax. IMPRESSION: Trace pleural effusion left lung base. No acute process. ACT 112: Negative or not required by law. The above report was generated using voice recognition software. It may contain grammatical, syntax or spelling errors. Electronically signed by: Leonardo Grossman M.D. 01/11/2020 1:59 PM
--- NOTE | 2020-01-11 17:53 | Hospitalist Progress Note ---
Date of Service January 11, 2020 Assessment & Plan (1) Cellulitis: Right lower extremity from venous stasis ulceration. Pseudomonas isolated. Antibiotic switched to cefepime on 01/04 -> cipro PO on 01/08 Follow up blood cultures negative to date. Appreciate wound care input. (2) Traumatic open wound of right lower leg with delayed healing: Wound care consult. Debrided at wound care clinic 01/04. (3) Tachycardia: Resolved with IV fluids. Telemetry. (4) Elevated blood pressure reading: On no medication for this as outpatient. Current BPs are WNL (5) Osteoporosis: Currently on no medication for this. Ca WNL (6) Chronic venous stasis: Supportive care. (7) DVT prophylaxis: Heparin SQ (8) : Supportive care. Zyprexa IM as needed Family given option of rehab vs home with 24/12 care and has chosen 24/ care. This is being set up to start tomorrow. Rx on file for hospital bed due to frequent repositioning not feasible with an ordinary bed. To be delivered tomorrow (9) Back pain: CXR neg for rib fractures Possible soft tissue injury with fall given spasm noted Pt also with T12 compression fracture hx Heating pads Hospital bed for home Admission and Anticipated Discharge Date Admission Date: January 06, 2020 Subjective Pt continues to have mild soreness to her R LE but this minimal now. "Let me show you my leg. I'm so proud of it!". She is very happy with her progress and feels that the swelling is gone. Still some discoloration, but more of the chronic brown sort and not red/pink. Dressing was changed today and she states she can't believe how much better it looks. Tolerating PO without issue. Pt denies fever, SOB, chest pain, abd pain, n/v/c/d, LE swelling. 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 She had been c/o L sided back pain along her ribs, but had not wanted to tell anyone that she fell. When asked, pt does say that she has pain and points it out as L sided posterior ribs. She states it is that way in certain positions only, but it has been better with the hospital bed due to the different positioning options. She states she is sleeping better in the hospital bed even. Review of Systems Review of Systems: Pertinent positives and negatives reviewed in HPI--all others negative Physical Exam Constitutional: WD/WN, vitals as above Eyes: normal visual pino by confrontation and + anicteric sclerae Neck: normal visual inspection and trachea midline Respiratory: normal respiratory effort, lungs clear to auscultation Cardiovascular: Rate/Rhythm: regular rate and regular rhythm Extremities: no edema Gastrointestinal (Abdomen): Inspection/Auscultation: abdomen not distended Percussion/Palpation: abdomen soft; abdomen nontender Musculoskeletal: Head/Neck/Chest: normocephalic and head atraumatic L sided posterior rib pain lateral to spine, point tender over multiple ribs Skin: no rashes, warm and dry no erythema (bandages clean and dry) Neurologic: awake; not confused Speech / Cognition: normal speech Psychiatric: A+Ox3, euthymic affect Results & Data Results & Data ([facility]) Vital Signs (Past 12 Hours) Vital Signs Temp Pulse Resp BP Pulse Ox 01/11/20 15:00 36.2 C L 82 16 128/63 93 01/11/20 06:59 36.9 C 66 20 127/63 95 PG Care Time/CCT Total # of Minutes Spent Total Time Spent with Patient: Total time spent is greater than 50% in coordination of care (as documented) at patient's floor/unit and/or counseling patient: Coding Level of Care Code 26019 Subseq Hosp Care Lvl 2 Diagnoses Cellulitis L03.90 Traumatic open wound of right lower leg with delayed healing S81.801D Tachycardia R00.0 Elevated blood pressure reading R03.0 Osteoporosis M81.0 Chronic venous stasis I87.8 DVT prophylaxis Z29.9 owning F05 Back pain M54.9
[2020-01-12 06:55] LABS: Hematocrit (blood only) 41.2 % (37-47); Hemoglobin 13.6 g/dL (12.0-16.0); Mean Corpuscular Hemoglobin 28.8 pg (25-34); Mean Corpuscular Volume 87.1 fL (80-100); Mean Platelet Volume 11.2 fL (7.4-10.4); Platelet Count 182 K/uL (130-400); RDW Coefficient of Variation 15.5 % (11.5-14.5); RDW Standard Deviation 49.9 fL (36.4-46.3); Red Blood Count 4.73 M/uL (4.2-5.4); White Blood Count 4.54 K/uL (4.8-10.8)
[2020-01-12 07:24] LABS: Creatinine Clr Calc Pharmacy 32.9 ml/min; Est GFR (African American) 86.7; Est GFR (Non-African American) 74.8
[2020-01-12] MEDS: CIPROFLOXACIN 500 MG TAB PO SCH (08:37)
[2020-01-12] MEDS: HEPARIN SOD 5,000 UNIT/0.5 ML VIAL SQ SCH (08:37)
--- NOTE | 2020-01-19 08:24 | Discharge Summary ---
Date of Service January 12, 2020 Admission HPI Per Admitting Provider Elisa Gamboa is an 89 year old female who presents to the ER on the advice of wound care clinic due to ongoing traumatic wound on right lower bishop. The patient was unable to give me much of a history but was able to confirm prior notes that the initial injury was from a cover seamer the she banged her leg into on several occasions but unclear when original injury occurred (?1 month ago). She was seen by her PCP on December 21 and started on doxycycline due to concern for surrounding cellulitis and set up with a wound care appointment today. At her wound care appointment the aound was debrideded however due to continued cellulitis which did not appear to respond to doxycycline and tachycardia with irregular rhythm in the office she was advised to go to the ER for further workup. Her irregular heart rate was also found during her PCP appointment in December and EKG at that time showed sinus tachycardia with occasional PACs and one PVC. In the ER she was started on vancomycin and ceftriaxone. WBC/ESR WNL and CRP minimally elevated. She was referred to the medicine team for possible admission due to failure of outpatient antibiotics. Principal Diagnosis cellulitis Discharge Exam Constitutional: WD/WN, vitals as above Eyes: normal visual pino by confrontation and + anicteric sclerae Neck: normal visual inspection and trachea midline Respiratory: normal respiratory effort, lungs clear to auscultation Cardiovascular: Rate/Rhythm: regular rate and regular rhythm Extremities: no edema Gastrointestinal (Abdomen): Inspection/Auscultation: abdomen not distended Percussion/Palpation: abdomen soft; abdomen nontender Musculoskeletal: Head/Neck/Chest: normocephalic and head atraumatic L sided posterior rib pain lateral to spine, point tender over multiple ribs Skin: no rashes, warm and dry no erythema (bandages clean and dry) Neurologic: awake; not confused Speech / Cognition: normal speech Psychiatric: A+Ox3, euthymic affect Discharge Data Allergies Allergy/AdvReac Type Severity Reaction Status Date / Time codeine Allergy Unknown Unknown Verified 01/04/20 17:32 Sulfa (Sulfonamide Allergy Unknown Unknown Verified 01/04/20 17:32 Antibiotics) Consultations 01/04/20 18:03 ED Decision to Admit Stat Hospital Course (1) Cellulitis: Right lower extremity from venous stasis ulceration. Pseudomonas isolated. Antibiotic switched to cefepime on 01/04 -> cipro PO on 01/08 Follow up blood cultures negative to date. Appreciate wound care input. Patient will be continued on cipro at discharge. (2) Traumatic open wound of right lower leg with delayed healing: Wound care consult. Debrided at wound care clinic 01/04. (3) Tachycardia: Resolved with IV fluids. Telemetry. (4) Elevated blood pressure reading: On no medication for this as outpatient. Current BPs are WNL (5) Osteoporosis: Currently on no medication for this. Ca WNL (6) Chronic venous stasis: Supportive care. (7) DVT prophylaxis: Heparin SQ (8) : Supportive care. Zyprexa IM as needed Family given option of rehab vs home with 24/12 care and has chosen 24/12 care. Rx on file for hospital bed due to frequent repositioning not feasible with an ordinary bed. Discharged home with home health (9) Back pain: CXR neg for rib fractures Possible soft tissue injury with fall given spasm noted Pt also with T12 compression fracture hx Heating pads Hospital bed for home Total Time Total Time Spent Total Time Spent (In Minutes): 32 Total Time Includes: Examination of the Patient, Discharge Planning and Medication Reconciliation Discharge Plan Discharge Items Patient Disposition: Home - Home Health Services Reason For Visit: CELLULITIS, LEG ULCER Discharge Diagnosis: cellulitis Activity: Resume your previous activity Non-emergency contact: Primary Care Provider Call non-emergency contact if: you have any medication questions Follow-up/Referrals: Jair Cristobal DO [Primary Care Provider] - 01/20/20 11:30 am Diet: Regular Addtl Attending Provider Instructions: You have been hospitalized for an acute medical problem. During your stay at [facility], we have made an effort to correct the problem that brought you to the hospital while keeping you as comfortable as possible. Medications were used to bring your condition under control and your discharge instructions will include directions for any medications you should take after leaving the hospital. Please make sure you see your Primary Care Provider as part of your follow up plan. Pending Studies at Discharge: No Stand-Alone Forms: [facility] [employer], Smoking Cessation Medications and DC Order Prescriptions: New acetaminophen 325 mg Tablet 650 mg PO Q4H PRN (Reason: pain) Qty: 15 RF: 0 ciprofloxacin HCl 500 mg Tablet 500 mg PO BID Qty: 20 RF: 0 Discontinued doxycycline hyclate 100 mg capsule 100 mg PO BID Qty: 20 RF: 0 Discharge Orders: Discharge Order (Routine); Ordered 01/12/20 Ordered By: Maury Ramos Admission Data Admit Date/Time: 01/06/20 11:12 Attending Provider: Maury Ramos Admit Provider: Martin Baeza Primary Care Provider: Jair Cristobal Other Providers: Martin Baeza ; [facility] Other Interventions: Discharge Summary Assessment (RN) Last Done: 01/12/20 15:14 Coding Level of Care Code D/C Day Management >30 mins Diagnoses Cellulitis L03.90 Traumatic open wound of right lower leg with delayed healing S81.801D Tachycardia R00.0 Elevated blood pressure reading R03.0 Osteoporosis M81.0 Chronic venous stasis I87.8 DVT prophylaxis Z29.9 F05 Back pain M54.9 Time Spent (min) 32
== END 2020-01-12 16:29 | disposition home health service (06) | DRG 603 ==
LOC: 2W 15:43 → ED 15:43 → SUATTDRO 19:09 → 2W 19:41 → SUATTDRO 01-06 11:12 → 2N 01-06 16:30